=== PATIENT | male | born 1960 | race African-American/Black ===

== ENCOUNTER 2019-06-16 14:09 | Emergency (ER) | payer SELFPAY ==
[2019-06-16] MEDS ORDERED: Sodium Chloride 0.9% 10 ML Syringe FLUSH PRN (14:11)
[2019-06-16] MEDS ORDERED: Sodium Chloride 0.9% 2.5 ML Syringe FLUSH PRN (14:11)
[2019-06-16] MEDS ORDERED: Sodium Chloride 0.9% 1,000 ML IV ONE (14:11)
--- NOTE | 2019-06-16 14:14 | EDM.PDOC ---
ED HPI GENERAL MEDICAL PROBLEM - General Chief Complaint: General Stated Complaint: UNKNOWN ISSUE(S) Time Seen by Provider: 06/16/19 14:14 Source of Information: Reports: Patient, Other (Dr. Kendrick ) History Limitations: Reports: No Limitations - History of Present Illness INITIAL COMMENTS - FREE TEXT/NARRATIVE: HISTORY AND PHYSICAL: History of present illness: Patient is a 59-year-old male presents to the ED from clinic for concern of hyperkalemia, hyperglycemia, and elevated creatinine. Patient has no previous visits at clinic or ED, states he recently moved from [place]. He states he was told a year or two ago that he has poor kidney function but denies requiring dialysis. He states he was seen in the clinic today as he was feel weak and nauseous this past week. He denies chest pain, shortness of breath, abdominal pain, diarrhea. History of type 2 diabetes and hypertension. Review of systems: As per history of present illness and below otherwise all systems reviewed and negative. Past medical history: As per history of present illness and as reviewed below otherwise noncontributory. Surgical history: As per history of present illness and as reviewed below otherwise noncontributory. Social history: No reported history of drug or alcohol abuse. Family history: As per history of present illness and as reviewed below otherwise noncontributory. Physical exam: General: Patient sitting comfortably in no acute distress and nontoxic appearing HEENT: Atraumatic, normocephalic, pupils reactive, negative for conjunctival pallor or scleral icterus, mucous membranes moist, throat clear, neck supple, nontender, trachea midline. No meningeal signs. Lungs: Clear to auscultation, breath sounds equal bilaterally, chest nontender. Heart: S1S2, regular, negative for clicks, rubs, or overt murmur. Abdomen: Soft, nondistended, nontender. Negative for masses or hepatosplenomegaly. Negative for costovertebral tenderness. No rigidity, rebound , guarding. Pelvis: Stable nontender. Genitourinary: Deferred. Rectal: Deferred. Extremities: Atraumatic, negative for cords or calf pain. Neurovascular unremarkable. Neuro: Awake, alert, oriented. Cranial nerves II through XII unremarkable. Cerebellum unremarkable. Motor and sensory unremarkable throughout. Exam nonfocal. Notes: Blood sugar improved to 311 with 10 units insulin Diagnostics: CBC, CMP, serum ketones, EKG, CXR, ABG, UA Therapeutics: 1L NS IV x 2 10 unit insulin IV Prescriptions: Impression: Elevated creatinine, hyperkalemia, hyperglycemia Plan: Dr. Cisneros, [facility], accepted patient for transfer via ground EMS. Definitive disposition and diagnosis as appropriate pending reevaluation and review of above. - Related Data Allergies Allergy/AdvReac Type Severity Reaction Status Date / Time No Known Allergies Allergy Verified 06/16/19 14:18 Home Meds: Home Meds Metoprolol Succinate 100 mg PO DAILY 06/16/19 [History] Repaglinide 1 mg PO BID 06/16/19 [History] Telmisartan [Micardis] 40 mg PO DAILY 06/16/19 [History] amLODIPine Besylate [Amlodipine Besylate] 10 mg PO DAILY 06/16/19 [History] atorvaSTATin [Lipitor] 20 mg PO BEDTIME 06/16/19 [History] glipiZIDE [Glipizide ER] 5 mg PO BID 06/16/19 [History] ED ROS GENERAL - Review of Systems Review Of Systems: ROS reveals no pertinent complaints other than HPI. ED EXAM, GENERAL - Physical Exam Exam: See Below (see dictation) Course - Vital Signs Last Recorded V/S: Last Vital Signs Temp 96.8 F 06/16/19 16:36 Pulse 75 06/16/19 16:36 Resp 18 06/16/19 16:36 BP 139/87 06/16/19 16:36 Pulse Ox 99 06/16/19 16:36 - Orders/Labs/Meds Orders: Active Orders 24 hr Category Date Time Status EKG Documentation Completion [RC] STAT Care 06/16/19 14:11 Active POC Glucose [Blood Glucose Check, Bedside] [RC] ONETIME Care 06/16/19 14:11 Active Saline Lock Insert [OM.PC] Stat Oth 06/16/19 14:10 Ordered Labs: Laboratory Tests 06/16/19 06/16/19 06/16/19 Range/Units 14:55 14:55 14:55 WBC 8.35 (4.0-11.0) K/uL RBC 3.50 L (4.50-5.90) M/uL Hgb 10.5 L (13.0-17.0) g/dL Hct 32.5 L (38.0-50.0) % MCV 92.9 (80.0-98.0) fL MCH 30.0 (27.0-32.0) pg MCHC 32.3 (31.0-37.0) g/dL RDW Std Deviation 41.7 (28.0-62.0) fl RDW Coeff of Matthew 13 (11.0-15.0) % Plt Count 416 H (150-400) K/uL MPV 9.90 (7.40-12.00) fL Neut % (Auto) 71.1 (48.0-80.0) % Lymph % (Auto) 23.1 (16.0-40.0) % [place] % (Auto) 3.6 (0.0-15.0) % Eos % (Auto) 2.0 (0.0-7.0) % Baso % (Auto) 0.2 (0.0-1.5) % Neut # (Auto) 5.9 H (1.4-5.7) K/uL Lymph # (Auto) 1.9 (0.6-2.4) K/uL [place] # (Auto) 0.3 (0.0-0.8) K/uL Eos # (Auto) 0.2 (0.0-0.7) K/uL Baso # (Auto) 0.0 (0.0-0.1) K/uL Nucleated RBC % 0.0 /100WBC Nucleated RBCs # 0 K/uL ABG pH (7.35-7.45) ABG pCO2 (35-45) mmHG ABG pO2 (75-100) mmHG ABG HCO3 (22-26) mEq/L ABG Total CO2 ABG Base Excess (-2.0-2.0) Sodium 128 L (136-148) mmol/L Potassium 5.9 H (3.5-5.1) mmol/L Chloride 96 L (98-107) mmol/L Carbon Dioxide 22.1 (21.0-32.0) mmol/L BUN 81 H (7.0-18.0) mg/dL Creatinine 7.5 H (0.8-1.3) mg/dL Est Cr Clr Drug Dosing 13.18 mL/min Estimated GFR (MDRD) 9.1 ml/min Glucose 629 H* (74-106) mg/dL POC Glucose (60-110) mg/dL Calcium 8.3 L (8.5-10.1) mg/dL Magnesium 1.9 (1.8-2.4) mg/dL Total Bilirubin 0.6 (0.2-1.0) mg/dL AST 20 (15-37) IU/L ALT 86 H (14-63) IU/L Alkaline Phosphatase 192 H (46-116) U/L Total Protein 7.3 (6.4-8.2) g/dL Albumin 2.8 L (3.4-5.0) g/dL Globulin 4.5 H (2.6-4.0) g/dL Albumin/Globulin Ratio 0.6 L (0.9-1.6) Urine Color Urine Appearance Urine pH (5.0-8.0) Ur Specific [place] (1.001-1.035) Urine Protein (NEGATIVE) mg/dL Urine Glucose (UA) (NEGATIVE) mg/dL Urine Ketones (NEGATIVE) mg/dL Urine Occult Blood (NEGATIVE) Urine Nitrite (NEGATIVE) Urine Bilirubin (NEGATIVE) Urine Urobilinogen (<2.0) EU/dL Ur Leukocyte Esterase (NEGATIVE) Urine RBC (0-2/HPF) Urine WBC (0-5/HPF) Ur Epithelial Cells (NONE-FEW) Urine Bacteria (NEGATIVE) Urine Mucus (NONE-MOD) Ketones NEGATIVE (NEG) 06/16/19 06/16/19 06/16/19 Range/Units 15:41 16:02 16:19 WBC (4.0-11.0) K/uL RBC (4.50-5.90) M/uL Hgb (13.0-17.0) g/dL Hct (38.0-50.0) % MCV (80.0-98.0) fL MCH (27.0-32.0) pg MCHC (31.0-37.0) g/dL RDW Std Deviation (28.0-62.0) fl RDW Coeff of Matthew (11.0-15.0) % Plt Count (150-400) K/uL MPV (7.40-12.00) fL Neut % (Auto) (48.0-80.0) % Lymph % (Auto) (16.0-40.0) % [place] % (Auto) (0.0-15.0) % Eos % (Auto) (0.0-7.0) % Baso % (Auto) (0.0-1.5) % Neut # (Auto) (1.4-5.7) K/uL Lymph # (Auto) (0.6-2.4) K/uL [place] # (Auto) (0.0-0.8) K/uL Eos # (Auto) (0.0-0.7) K/uL Baso # (Auto) (0.0-0.1) K/uL Nucleated RBC % /100WBC Nucleated RBCs # K/uL ABG pH 7.318 L (7.35-7.45) ABG pCO2 32 L (35-45) mmHG ABG pO2 89 (75-100) mmHG ABG HCO3 16 L (22-26) mEq/L ABG Total CO2 17 ABG Base Excess -9 L (-2.0-2.0) Sodium (136-148) mmol/L Potassium (3.5-5.1) mmol/L Chloride (98-107) mmol/L Carbon Dioxide (21.0-32.0) mmol/L BUN (7.0-18.0) mg/dL Creatinine (0.8-1.3) mg/dL Est Cr Clr Drug Dosing mL/min Estimated GFR (MDRD) ml/min Glucose (74-106) mg/dL POC Glucose > 500 H (60-110) mg/dL Calcium (8.5-10.1) mg/dL Magnesium (1.8-2.4) mg/dL Total Bilirubin (0.2-1.0) mg/dL AST (15-37) IU/L ALT (14-63) IU/L Alkaline Phosphatase (46-116) U/L Total Protein (6.4-8.2) g/dL Albumin (3.4-5.0) g/dL Globulin (2.6-4.0) g/dL Albumin/Globulin Ratio (0.9-1.6) Urine Color YELLOW Urine Appearance HAZY Urine pH 7.5 (5.0-8.0) Ur Specific [place] 1.020 (1.001-1.035) Urine Protein 100 H (NEGATIVE) mg/dL Urine Glucose (UA) >=1000 (NEGATIVE) mg/dL Urine Ketones NEGATIVE (NEGATIVE) mg/dL Urine Occult Blood TRACE-INTACT H (NEGATIVE) Urine Nitrite NEGATIVE (NEGATIVE) Urine Bilirubin NEGATIVE (NEGATIVE) Urine Urobilinogen 0.2 (<2.0) EU/dL Ur Leukocyte Esterase NEGATIVE (NEGATIVE) Urine RBC 0-3 (0-2/HPF) Urine WBC 0-2 (0-5/HPF) Ur Epithelial Cells OCCASIONAL (NONE-FEW) Urine Bacteria RARE (NEGATIVE) Urine Mucus RARE (NONE-MOD) Ketones (NEG) 06/16/19 Range/Units 16:40 WBC (4.0-11.0) K/uL RBC (4.50-5.90) M/uL Hgb (13.0-17.0) g/dL Hct (38.0-50.0) % MCV (80.0-98.0) fL MCH (27.0-32.0) pg MCHC (31.0-37.0) g/dL RDW Std Deviation (28.0-62.0) fl RDW Coeff of Matthew (11.0-15.0) % Plt Count (150-400) K/uL MPV (7.40-12.00) fL Neut % (Auto) (48.0-80.0) % Lymph % (Auto) (16.0-40.0) % [place] % (Auto) (0.0-15.0) % Eos % (Auto) (0.0-7.0) % Baso % (Auto) (0.0-1.5) % Neut # (Auto) (1.4-5.7) K/uL Lymph # (Auto) (0.6-2.4) K/uL [place] # (Auto) (0.0-0.8) K/uL Eos # (Auto) (0.0-0.7) K/uL Baso # (Auto) (0.0-0.1) K/uL Nucleated RBC % /100WBC Nucleated RBCs # K/uL ABG pH (7.35-7.45) ABG pCO2 (35-45) mmHG ABG pO2 (75-100) mmHG ABG HCO3 (22-26) mEq/L ABG Total CO2 ABG Base Excess (-2.0-2.0) Sodium (136-148) mmol/L Potassium (3.5-5.1) mmol/L Chloride (98-107) mmol/L Carbon Dioxide (21.0-32.0) mmol/L BUN (7.0-18.0) mg/dL Creatinine (0.8-1.3) mg/dL Est Cr Clr Drug Dosing mL/min Estimated GFR (MDRD) ml/min Glucose (74-106) mg/dL POC Glucose 311 H (60-110) mg/dL Calcium (8.5-10.1) mg/dL Magnesium (1.8-2.4) mg/dL Total Bilirubin (0.2-1.0) mg/dL AST (15-37) IU/L ALT (14-63) IU/L Alkaline Phosphatase (46-116) U/L Total Protein (6.4-8.2) g/dL Albumin (3.4-5.0) g/dL Globulin (2.6-4.0) g/dL Albumin/Globulin Ratio (0.9-1.6) Urine Color Urine Appearance Urine pH (5.0-8.0) Ur Specific [place] (1.001-1.035) Urine Protein (NEGATIVE) mg/dL Urine Glucose (UA) (NEGATIVE) mg/dL Urine Ketones (NEGATIVE) mg/dL Urine Occult Blood (NEGATIVE) Urine Nitrite (NEGATIVE) Urine Bilirubin (NEGATIVE) Urine Urobilinogen (<2.0) EU/dL Ur Leukocyte Esterase (NEGATIVE) Urine RBC (0-2/HPF) Urine WBC (0-5/HPF) Ur Epithelial Cells (NONE-FEW) Urine Bacteria (NEGATIVE) Urine Mucus (NONE-MOD) Ketones (NEG) Meds: Medications Discontinued Medications Generic Name Dose Route Start Last Admin Trade Name Freq PRN Reason Stop Dose Admin Sodium Chloride 1,000 mls @ 999 mls/hr 06/16/19 14:11 06/16/19 14:41 Normal Saline IV 06/16/19 15:11 999 mls/hr STAT ONE Administration Sodium Chloride 1,000 mls @ 999 mls/hr 06/16/19 16:15 06/16/19 16:04 Normal Saline IV 999 mls/hr STAT SHADIA Administration Insulin Human Regular 5 unit 06/16/19 14:50 06/16/19 15:09 Novolin R IVPUSH 06/16/19 14:51 5 units ONETIME ONE Administration Protocol Insulin Human Regular 5 unit 06/16/19 15:42 06/16/19 15:49 Novolin R IVPUSH 06/16/19 15:43 5 units ONETIME ONE Administration Protocol Sodium Chloride 10 ml 06/16/19 14:11 06/16/19 14:40 Saline Flush FLUSH 10 ml ASDIRECTED PRN Administration Keep Vein Open Sodium Chloride 2.5 ml 06/16/19 14:11 06/16/19 14:40 Saline Flush FLUSH 2.5 ml ASDIRECTED PRN Administration Keep Vein Open Departure - Departure Time of Disposition: 16:20 Disposition: DC/Tfer to Acute Hospital 02 Condition: Good Clinical Impression: Elevated serum creatinine, Hyperkalemia, Hyperglycemia - Discharge Information Referrals: Manfred Kendrick MD [Primary Care Provider] - Forms: ED Department Discharge - My Orders Last 24 Hours: My Active Orders 06/16/19 14:10 Saline Lock Insert [OM.PC] Stat 06/16/19 14:11 EKG Documentation Completion [RC] STAT POC Glucose [Blood Glucose Check, Bedside] [RC] ONETIME - Assessment/Plan Last 24 Hours: My Active Orders 06/16/19 14:10 Saline Lock Insert [OM.PC] Stat 06/16/19 14:11 EKG Documentation Completion [RC] STAT POC Glucose [Blood Glucose Check, Bedside] [RC] ONETIME
[2019-06-16] MEDS ORDERED: Insulin Regular, Human 100 Units/ML 10 ML Vial IVPUSH ONE ×2 (14:50→15:42)
[2019-06-16 15:31] LABS: CARBON DIOXIDE,CO2 22.1 mmol/L (21.0-32.0); POTASSIUM,K 5.9 mmol/L (3.5-5.1)
[2019-06-16] MEDS ORDERED: Sodium Chloride 0.9% 1,000 ML IV SCH (16:15)
--- NOTE | 2019-06-16 16:16 | CR ---
Chest: Portable view of the chest was obtained. Comparison: No prior chest x-ray. Heart size and mediastinum are within normal limits. Lungs are clear. Bony structures are grossly intact. Impression: Nothing acute is seen on portable chest x-ray. Diagnostic code #1 MTDD
== END 2019-06-16 16:50 ==
LOC: MW.ED 14:09
DX: E87.5 Hyperkalemia (principal); E11.65 Type 2 diabetes mellitus with hyperglycemia; R74.8 Abnormal levels of other serum enzymes; I10 Essential (primary) hypertension; Z79.84 Long term (current) use of oral hypoglycemic drugs; Z79.899 Other long term (current) drug therapy
CPT/HCPCS: 36415; 36600; 71045; 80053; 81001; 82009; 82803; 82962; 83735; 85025; 87804; 93005; 96360; 96361; 99285; J7040; J1815-GY